=== PATIENT | female | born 1990 ===

== ENCOUNTER 2022-08-02 13:05 | Emergency (ER) | payer BC | END 2022-08-02 14:41 | disposition left against medical advice (07) | LOC: MW.ED 13:05 | DX: Z53.21 Procedure and treatment not carried out due to patient leaving prior to being seen by health care provider (principal) ==

== ENCOUNTER 2022-08-02 22:55 | Emergency (ER) | payer BC ==
[2022-08-02] MEDS ORDERED: Acetaminophen 325 MG Tab PO ONE (23:32)
[2022-08-02] MEDS ORDERED: Penicillin G Benzathine 1,200,000 Units/2 ML Syringe IM ONE (23:32)
[2022-08-02] MEDS ORDERED: Dexamethasone 10 MG/ML SDV PO ONE (23:32)
== END 2022-08-02 23:55 | disposition home or self-care (01) ==
LOC: MW.ED 22:55
DX: J02.0 Streptococcal pharyngitis (principal)
CPT/HCPCS: 87880; 96372; 99283; A9270; J0561; J8540